=== PATIENT | male | born 1985 | race Caucasian/White ===

== ENCOUNTER 2024-03-08 10:10 | Outpatient (CLI) | payer BC, SELFPAY ==
--- OUTSIDE RECORDS SUMMARY | 2024-03-08 10:15 | XMS_ITS | Encounter Summary ---
Author Organization [facility] Address [address] [place] [address] Care Team Providers Care Hydro Excavation Operator Name Role Phone Perry Hurd [facility] Primary Care Provider Encounter Details Date Type Department Care Team (Late st Contact Info) Description 03/24/2022 Lab Requisition [facility] Pathology & Laboratory Medicine - [facility] [address] [place] [address] Micheal Navarro MD [address] [place] [address] Encounter for other general examination Social History Tobacco Use Types Packs/Day Years Used Date Smoking Tobacco: Never Assessed Interpersonal Safety Answer Date Record ed Physically Hurt Never 02/17/2020 Verbally Threaten Not on file 02/17/2020 Sex and Gender Information Value Date Recorded Sex Assigned at Not on file Legal Sex Male 9:12 EST Gender Identity Not on file Sexual Orientation Not on file documented as of this encounter Plan of Treatment Not on file documented as of this encounter Procedures Procedure Name Priority Date/Time Associated Diagnosis Comments SURGICAL PATHOLOGY Today 03/24/2022 8:58 EST documented in this encounter Results * SURGICAL PATHOLOGY (03/24/2022 8:58 EST) Note to Patient The following pathology results have been interpreted by your pathologist and may be available to you before your health provider has had the opportunity to review them. Please allow time for your provider to receive these results and explore management options, if applicable. 03/30/2022 9:58 EST [facility] Final Diagnosis A. VAS DEFERENS, RIGHT, VASECTOMY: - Segment of vas deferens with complete cross sections identified. B. VAS DEFERENS, LEFT, VASECTOMY: - Segment of vas deferens with complete cross sections identified. 03/30/2022 9:58 [facility] Diagnosis Comment Deeper sections have been examined of block B. 03/30/2022 9:58 [facility] Attestation There was significant resident/fellow involvement in the diagnostic evaluation of this case. By the signature below, the attending physician certifies that they have personally conducted a gross and/or microscopic examination of the described specimens and rendered or confirmed the above diagnosis. 03/30/2022 9:58 [facility] at 0958 Clinical History Desires sterility, altered anatomy; prior left inguinal herniorrhaphy with scarification 03/30/2022 9:58 [facility] Gross Description A. Received in formalin labelled with proper patient identification (initials H, D) and right vas deferens is a ruff-white tubular tissue (0.4 cm in length and 0.3 cm in diameter). The cut surface is unremarkable and a central pinpoint lumen is identified. The specimen is bisected and submitted entirely in A1. B. Received in formalin labelled with proper patient identification (initials H, D) and left vas deferens is a ruff-white tubular tissue (0.3 cm in length and 0.2 cm in diameter). The cut surface is unremarkable and a central pinpoint lumen is identified. The specimen is bisected and submitted entirely in B1. Lupillo Boudreaux MD 03/25/2022 11:42 03/30/2022 9:58 [facility] Resident/Jarret w: Lupillo Boudreaux MD 03/30/2022 9:58 [facility] Performing Lab [facility] 03/30/2022 9:58 [facility] Scanned Images 03/30/2022 9:58 [facility] Tissue ENTIRE VAS DEFERENS / Unknown 03/24/2022 8:58 EST 03/24/2022 23:31 EST Tissue specimen (specimen) VAS DEFERENS STRUCTURE / Unknown 03/24/2022 8:58 EST 03/24/2022 23:31 EST us Micheal Navarro MD PATHOLOGY ORDERABLES Final R esult [facility] [address] [place] [address] documented in this encounter Visit Diagnoses Diagnosis Encounter for other general examination documented in this encounter Care Teams Hydro Excavation Operator Relationship Specialty Start Date End Date Perry Hurd, [facility]- [address] [place] [address] [place] [phone] PCP - General Family Medicine - Primary Care 02/24/22 documented as of this encounter
--- OUTSIDE RECORDS SUMMARY | 2024-03-08 10:15 | XMS_ITS | Encounter Summary ---
Author Organization [facility] Address [address] [place] [address] Care Team Providers Care Plastering Contractor Name Role Phone Unknown, Provider MD Primary Care Provider Unava ilable Encounter Details Date Type Department Care Team (Late st Contact Info) Description 01/22/2020 Results Only [facility] - [facility] - [address] [place] [address] Unknown, Provider, Social History Tobacco Use Types Packs/Day Years [...] Priority Date/Time Associated Diagnosis Comments SURGICAL PATHOLOGY Routine 01/22/2020 documented in this encounter Results * SURGICAL PATHOLOGY (01/22/2020) 01/22/2020 01/25/2020 9:[address] [facility] - 01/27/2020 17:17 EST ----- ------- Name: JOSE M MAIER ? : 85 ?Age/Sex: 35/M ?Unit#: [id number] ? Loc: LAB.POP ? Status: REG REF ?? Reg Date: 01/23/20 ? Pt.Phone Number: ? ----- ------- Specimen: [id number] ? STATUS: SOUT ?Spec Date:01/22/20 ? Physician Copies: ?NONE,NONE ? Tissues: A ?? Skin, other than cyst (SCALP) ? CPT: 93886 ?? Units: ??1 ?FINAL DIAGNOSIS ? SKIN OF SCALP, RIGHT PARIETAL, SHAVE BIOPSY: ? - Follicular cyst, isthmic-catagen type (pilar cyst). ? GROSS DESCRIPTION ? Received in formalin labeled Jose M Maier is a circumscribed oval shaped firm ? glistening ruff wheeelr tissue measuring 0.6 x 0.4 x 0.4 cm, bisected, entirely ? submitted in one cassette. CP/db ?? PREOP DX/CLINICAL HISTORY ?DISORDER OF SKIN, UNSPECIFIED Signed ____(signature on file)____ Brittny Hector M.D. 01/27/20 ?? By the signature above, the attending physician certifies that he/she has personally conducted a gross and/or microscopic examination of the described specimens and rendered or confirmed the above diagnosis. Test Performed by [facility], [address] [place] [address] Material Expeditor: Rosemary Coats MD PHD ----- ------- us Provider Unknown PATHOLOGY ORDERABLES Final R esult [facility] [address] [place] [address] documented in this encounter Visit Diagnoses Not on filedocumented in this encounter Care Teams Plastering Contractor Relationship Specialty Start Date End Date Unknown, Provider, PCP - General 01/22/20 02/23/22 documented as of this encounter
--- OUTSIDE RECORDS SUMMARY | 2024-03-08 10:15 | XMS_ITS | Referral Summary ---
Author Organization Health system Address [address] [place] [address] Care Team Providers Care Hydrometeorology Teacher Name Role Phone Perry Hurd [facility] Primary Care Provider Social History Tobacco Use Types Packs/Day Years Used Date Smoking Tobacco: Never Assessed Interpersonal Safety Answer Date Record ed Physically Hurt Never 02/17/2020 Verbally Threaten Not on file 02/17/2020 Sex and Gender Information Value Date Recorded Sex Assigned at Not on file Legal Sex Male 9:12 EST Gender Identity Not on file Sexual Orientation Not on file Plan of Treatment Not on file Insurance [facility] Care Teams Hydrometeorology Teacher Relationship Specialty Start Date End Date Perry Hurd, [facility]- [address] [place] [address] [place] [phone] PCP - General Family Medicine - Primary Care 02/24/22
--- OUTSIDE RECORDS SUMMARY | 2024-03-08 10:15 | XMS_ITS | Encounter Summary ---
Author Organization [facility] Address [address] [place] [address] Care Team Providers Care Fiber Machine Tender Name Role Phone Unknown, Provider Primary Care Provider Perry Lopez [facility] Primary Care Provider Encounter Details Date Type Department Care Team (Late st Contact Info) Description 02/19/2020 Lab Requisition [facility] Pathology & Laboratory Medicine - [facility] [address] [place] [address] Outr Resulting Lab, Provider Social History Tobacco Use Types Packs/Day [...] on file documented as of this encounter Visit Diagnoses Not on filedocumented in this encounter Care Teams Fiber Machine Tender Relationship Specialty Start Date End Date Unknown, Provider, PCP - General 01/22/20 02/23/22 Perry Hurd, [facility] [address] [place] [address] [place] [phone] PCP - General Family Medicine - Primary Care 02/24/22 documented as of this encounter
--- OUTSIDE RECORDS SUMMARY | 2024-03-08 10:15 | XMS_ITS | Clinical Summary ---
Author Organization [facility] Address [address] [place] [address] Care Team Providers Care Varitype Operator Name Role Phone Perry Hurd [facility] Primary Care Provider Social History Tobacco Use Types Packs/Day Years Used Date Smoking Tobacco: Never Assessed Interpersonal Safety Answer Date Record ed Physically Hurt Never 02/17/2020 Verbally Threaten Not on file 02/17/2020 Sex and Gender Information Value Date Recorded Sex Assigned at Not on file Legal Sex Male 9:12 EST Gender Identity Not on file Sexual Orientation Not on file Plan of Treatment Health Maintenance Due Date Last Done Comments Hepatitis C Screen 1985 Hepatitis B Vaccine (1 of 3 - 19+ 3-dose series) 01/06 COVID-19 Vaccine ( season) 2023 Insurance [facility] Care Teams Varitype Operator Relationship Specialty Start Date End Date Perry Hurd, [facility]- [address] [place] [address] [place] [phone] PCP - General Family Medicine - Primary Care 02/24/22
--- OUTSIDE RECORDS SUMMARY | 2024-03-08 10:15 | XMS_ITS | Encounter Summary ---
Author Organization [facility] Address [address] [place] [address] Care Team Providers Care Gear Shaver Set Up Operator Name Role Phone Unknown, Provider Primary Care Provider Perry Lopez [facility] Primary Care Provider Encounter Details Date Type Department Care Team (Late st Contact Info) Description 04/16/2020 Lab Requisition [facility] Pathology & Laboratory Medicine - [facility] [address] [place] [address] Wai Trejo MD [address] [place] [phone] Disorder of the skin and subcutaneous tissue, unspecified Social History Tobacco Use Types Packs/Day Years [...] Procedure Name Priority Date/Time Associated Diagnosis Comments ANATOMIC PATHOLOGY - DOWNTIME Today 01/21/2020 13:00 EDT Disorder of the skin and subcutaneous tissue, unspecified documented in this encounter Results * ANATOMIC PATHOLOGY - DOWNTIME (01/21/2020 13:00 EDT) Final Diagnosis See scanned downtime report. 04/16/2020 13:05 EST [facility] Attestation Report electronically released by Jayda Johnson on 04/16/20 . 04/16/2020 13:05 EST [facility] Performing Lab [facility] 04/16/2020 13:05 EST [facility] Scanned Images 04/16/2020 13:05 EST [facility] Tissue TISSUE SPECIMEN FROM SKIN / Unknown 01/21/2020 13:00 EDT 04/16/2020 13:05 EST us Wai Trejo MD PATHOLOGY ORDERABLES F inal Result [facility] [address] [place] [address] documented in this encounter Visit Diagnoses Diagnosis Disorder of the skin and subcutaneous tissue, unspecified documented in this encounter Care Teams Gear Shaver Set Up Operator Relationship Specialty Start Date End Date Unknown, Provider, PCP - General 01/22/20 02/23/22 Perry Hurd, [employer]- [address] [place] [phone] PCP - General Family Medicine - Primary Care 02/24/22 documented as of this encounter
--- OUTSIDE RECORDS SUMMARY | 2024-03-08 10:15 | XMS_ITS | Encounter Summary ---
Author Organization [facility] Address [address] [place] [address] Care Team Providers Care Utility Tender Carding Name Role Phone Unknown, Provider Primary Care Provider Perry Lopez [facility] Primary Care Provider Encounter Details Date Type Department Care Team (Late st Contact Info) Description 03/29/2021 Lab Requisition [facility] Pathology & Laboratory Medicine - [address] [address] Outr Resulting Lab, Provider Social History Tobacco [...] Procedure Name Priority Date/Time Associated Diagnosis Comments TESTOSTERONE, TOTAL AND FREE Routine 03/29/2021 7:14 EST documented in this encounter Results * (ABNORMAL) TESTOSTERONE, TOTAL AND FREE (03/29/2021 7:14 EST) Testosterone 766 229 - 902 ng/dL 03/29/2021 22:06 EST [facility] Comment:The results of this assay can be falsley elevated due to the consumption of Biotin. Sex Hormone Bnd Glob 37.0 14.6 - 94.6 nmol/L 03/29/2021 22:06 EST [facility] Comment:The results of this assay can be falsely lowered due to the consumption of Biotin. Free Testosterone 16.3(H) 4.2 - 16.0 ng/dL 03/29/2021 22:06 EST [facility] Blood VENOUS BLOOD / Unknown 03/29/2021 7:14 EST 03/29/2021 21:03 EST Narrative [facility] - 03/29/2021 22:06 EST This test is not recommended in patients with plasma protein abnormalities. us Provider Outr Resulting Lab CHEMISTRY & BLOOD GA S ORDERABLES Final Result [facility] [address] [place] [address] documented in this encounter Visit Diagnoses Not on filedocumented in this encounter Care Teams Utility Tender Carding Relationship Specialty Start Date End Date Unknown, Provider, PCP - General 01/22/20 02/23/22 Perry Hurd, [employer]- [address] [place] [phone] PCP - General Family Medicine - Primary Care 02/24/22 documented as of this encounter
--- NOTE | 2024-03-08 10:24 | DI.RAD_ITS ---
Exam(s) XR CHEST 2V PA LATERAL EXAM: XR CHEST 2V PA LATERAL CLINICAL HISTORY: ACUTE URI, J06.9. TECHNIQUE: 2D digital imaging was performed. COMPARISON: No exams were available for comparison FINDINGS: 2 views: Heart size is normal. The mediastinum is not widened. Lungs are clear. No infiltrates nor pleural effusions. IMPRESSION: No acute pulmonary findings. DATA REPOSITORY: RADIATION DOSE DELIVERED:
== END 2024-03-08 10:30 ==
LOC: DI 10:14
PROVIDERS: Visit Provider Physician Assistant Medical
DX: J06.9 Acute upper respiratory infection, unspecified (principal)
CPT/HCPCS: 71046